=== PATIENT | female | born 1955 | race American Indian/Alaskan Native ===

== ENCOUNTER → 2025-02-06 | Outpatient (CLI) | payer MEDICARE, MEDICAID, OTHER, SELFPAY ==
--- NOTE | 2025-02-06 10:12 | XR_ITS ---
Examination: PA lateral chest 2 views TECHNIQUE: Upright PA lateral chest 2 views Date and time: February 06, 2025 1013 hours Comparison October 22, 2020 Shortness of breath today. FINDINGS: Mild enlargement cardiac contour Stable scarring in the lingular segment Mild to moderate vascular congestion. No lobar pneumonia or pulmonary edema IMPRESSION: Mild to moderate vascular congestion
== END | disposition home or self-care (01) ==
LOC: CDIM 09:54
PROVIDERS: PCP Physician Assistant; Referring Provider Nurse Practitioner Family; Visit Provider Nurse Practitioner Family
DX: R09.89 Other specified symptoms and signs involving the circulatory and respiratory systems (principal)
CPT/HCPCS: 71046